=== PATIENT | female | born 1940 | race Caucasian/White ===

== ENCOUNTER → 2016-08-07 | Outpatient (CLI) | payer OTHER ==
[~2016-08-07] MED LIST: ASPEC81 PO; ATV5 PO; CRG625 PO; LOSA1TAB PO; LPT40 PO; MULT-506 PO
--- NOTE | 2016-08-07 13:16 | MAMMOGRAPHY REPORT ---
BILATERAL DIGITAL SCREENING MAMMOGRAM TOMOSYNTHESIS WITH CAD: 08/07/2016 CLINICAL HISTORY: Asymptomatic. Personal history of breast cancer. TECHNIQUE: Breast tomosynthesis in addition to standard 2D mammography was performed. Current study was also evaluated with a Computer Aided Detection (CAD) system. COMPARISON: Comparison is made to exams dated: 06/16/2015 mammogram, 12/12/2014 ultrasound, 12/12/2014 mammogram, 06/07/2014 ultrasound, 05/27/2014 mammogram, and 04/19/2011 ultrasound - [facility]. BREAST COMPOSITION: There are scattered areas of fibroglandular density in both breasts. FINDINGS: No suspicious masses, calcifications, or areas of architectural distortion are noted in e ither breast. There has been no significant interval change compared to prior exams. There are stab le post surgical changes in the left upper outer quadrant from prior lumpectomy. Small bilateral ci rcumscribed benign-appearing masses and bilateral benign-appearing calcifications are not significan tly changed compared to prior exams. IMPRESSION: ACR BI-RADS CATEGORY 2: BENIGN There is no mammographic evidence of malignancy. A 1 year screening mammogram is recommended. The p atient will receive written notification of the results. Approximately 10% of breast cancers are not detected with mammography. A negative mammographic repor t should not delay biopsy if a clinically suggestive mass is present. Amanda Barber M.D. ah/:08/07/2016 09:41:52 Halver Machine Operator: Delmi GALICIA)(M), [facility] letter sent: Normal 1/2 BI-RADS Code: ACR BI-RADS Category 2: Benign
== END | disposition home or self-care (01) ==
LOC: C.MAMM 08:30
PROVIDERS: ATTEND Internal Medicine
DX: Z12.31 Encounter for screening mammogram for malignant neoplasm of breast (principal)

== ENCOUNTER → 2016-09-19 | Outpatient (CLI) | payer OTHER ==
[2016-09-19 13:30] LABS: BLOOD UREA NITROGEN 11 mg/dl (7-18); BUN/CREATININE RATIO 18.4 (10-20); CALCIUM 9.3 mg/dl (8.5-10.1); CARBON DIOXIDE 27 mmol/L (21-32); CHLORIDE 106 mmol/L (98-107); CHOLESTEROL 118 mg/dl (0-200); CREATININE 0.62 mg/dl (0.60-1.20); GLUCOSE 95 mg/dl (70-99); POTASSIUM 4.8 mmol/L (3.5-5.1); SODIUM 141 mmol/L (136-145); TRIGLYCERIDES 76 mg/dl (0-150); VERY LOW DENSITY LIPOPROT CALC 15 mg/dl
[2016-09-19 13:33] LABS: CHOLESTEROL/HDL RATIO 2.9; HDL CHOLESTEROL 41 mg/dl
== END | disposition home or self-care (01) ==
LOC: C.LABSPEC 12:09
PROVIDERS: ATTEND Internal Medicine
DX: E78.5 Hyperlipidemia, unspecified (principal)

== ENCOUNTER → 2017-01-28 | Outpatient (CLI) | payer OTHER ==
[2017-01-28 13:07] VITALS: BP 144/74; PULSE 72; TEMP 36.8; O2SAT 93
--- NOTE | 2017-01-28 14:31 | Radiation Oncology Follow-Up ---
Radiation Oncology Follow-Up Date of Visit Jan 28, 2017. 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 05/16/2011 Status post completion of radiation therapy utilizing accelerated partial breast treatment completed 07/05/2011 received 3850 cGy Intolerance to aromatase inhibitor Last Edited By: Mikki Jin on Jan 31, 2015 13:36 Interim History She has been doing well over this past year. She has noticed no changes to her breast. She is noted no masses or tenderness and no change of the axilla. She' s had no swelling of her arm. She is up-to-date on mammography. She had a mammogram 08/07/2016. There was no mammographic evidence of malignancy. A one- year screening mammogram was recommended. This was given a BI-RADS Category 2. In general she is doing well but she still complains of xerostomia. We have discussed the/chair. We discussed using humidifier in her bedroom. She stated she did use this for a while but then did not put it back into the room. She is edentulous. She has discussed this with her primary care physician. She has had laboratory studies. Allergies Coded Allergies: No Known Allergies (Unverified , 05/22/15) Home Medications Scheduled Aspirin (Aspirin EC Low Dose), 81 MG PO QAM Atorvastatin (Atorvastatin Calcium), 40 MG PO QAM Carvedilol (Carvedilol), 6.25 MG PO BID Losartan Potassium (Cozaar), 1 TAB PO DAILY Multivitamin (Multivitamin), 1 TAB PO DAILY Scheduled PRN Lorazepam (Lorazepam), 0.5 MG PO Q6H PRN for Anxiety/Agitation Review of Systems Gastrointestinal: Symptoms: WNL Oral: Symptoms: No Problems Other Oral Symptoms: Thick saliva and dry mouth - new problem for patient past 2 years Respiratory: Symptoms: WNL Urinary: Symptoms: WNL Skin: Symptoms: No Problems Breast: Right Upper Arm Measurement: 35.0 Right Mid Arm Measurement: 26.3 Right Wrist Measurement: 17.9 Left Upper Arm Measurement: 34.7 Left Mid Arm Measurement: 27.2 Left Wrist Measurement: 17.4 Arm Dominence: Left Physical Exam Vital Signs Date Time Temp Pulse Resp B/P (MAP) Pulse Ox O2 Delivery O2 Flow Rate FiO2 01/28/17 13:07 36.8 72 16 144/74 93 Fatigue: None General Appearance: no apparent distress Eyes: normal inspection, EOMI ENT: normal ENT inspection, hearing grossly normal Neck: no adenopathy, thyroid normal Respiratory/Chest: lungs clear Breast: She has well-healed incisions of the left breast. There are no masses or tenderness and no axillary adenopathy. She has no skin retractions or nipple changes. There is no telangiectasia. Using the Hudson score cosmesis she has an excellent outcome. The right breast showed no masses or tenderness and no axillary adenopathy. Cardiovascular: regular rate, rhythm, no gallop, no murmur Extremities: no pedal edema Neurologic/Psychiatric: no motor/sensory deficits, alert, normal mood/affect Skin: warm/dry Lymphatic: no adenopathy Additional Studies Patient: FITO JONES [facility] Rec: [id number] Address1: [address] [place] [address] [id number] Date: 1940 Sex: F Ref Phy: Hari Rivero M.D. Att Phy: Hari Rivero M.D. Sofiya Phy: Hari Rivero M.D. Inter Phy: Amanda Barber MD [facility] Zip: [place] [address] SC: [id number] Report #: [id number] Nutritional Services Director: YEISON Diagnosis: ASYMPTOMATIC Service Date: 08/07/16 MNE: [id number] Ordering Dr: Hari Rivero M.D. CC: Hari Rivero M.D. CONF: DICTATED BY: Amanda Barber MD MAMMOGRAPHY REPORT BILATERAL DIGITAL SCREENING MAMMOGRAM TOMOSYNTHESIS WITH CAD: 08/07/2016 CLINICAL HISTORY: Asymptomatic. Personal history of breast cancer. TECHNIQUE: Breast tomosynthesis in addition to standard 2D mammography was performed. Current study was also evaluated with a Computer Aided Detection (CAD ) system. COMPARISON: Comparison is made to exams dated: 06/16/2015 mammogram, 12/12/2014 ultrasound, 12/12/2014 mammogram, 06/07/2014 ultrasound, 05/27/2014 mammogram, and 04/19/2011 ultrasound - [facility]. BREAST COMPOSITION: There are scattered areas of fibroglandular density in both breasts. FINDINGS: No suspicious masses, calcifications, or areas of architectural distortion are noted in either breast. There has been no significant interval change compared to prior exams. There are stable post surgical changes in the left upper outer quadrant from prior lumpectomy. Small bilateral circumscribed benign-appearing masses and bilateral benign-appearing calcifications are not significantly changed compared to prior exams. IMPRESSION: ACR BI-RADS CATEGORY 2: BENIGN There is no mammographic evidence of malignancy. A 1 year screening mammogram is recommended. The patient will receive written notification of the results. Approximately 10% of breast cancers are not detected with mammography. A negative mammographic report should not delay biopsy if a clinically suggestive mass is present. Amanda Barber M.D. ah/:08/07/2016 09:41:52 Investment Fund Manager: Delmi JALLOH(Ángel)(M), [facility] letter sent: Normal 1/2 BI-RADS Code: ACR BI-RADS Category 2: Benign Dictated by: Amanda Barber MD Signed by: Amanda Barber MD Assessment & Plan Plan: Continue annual mammography. Continue regular follow-up with her primary care physician. She will laced the humidifier back in her bedroom. She is going to use Biotene mouth rinse. She'll continue follow-up with her primary care physician in regards to the xerostomia. A follow-up appointment with our office was not given. She may call if she has any questions or concerns would be happy to see her. She'll continue annual breast examination with the primary care physician. Total Time In Follow-Up I spent 20 minutes speaking to the patient and performing examination. I spent 15 minutes reviewing information and completing this note. Copy To Hari Rivero M.D. Problem Qualifiers (1) Breast cancer of upper-inner quadrant of left female breast: Estrogen receptor status: positive Qualified Codes: C50.212 - Malignant neoplasm of upper-inner quadrant of left female breast; Z17.0 - Estrogen receptor positive status [ER+]
== END | disposition home or self-care (01) ==
LOC: C.ONC 12:45
PROVIDERS: ATTEND Physician Assistant Medical
DX: C50.212 Malignant neoplasm of upper-inner quadrant of left female breast (principal)

== ENCOUNTER → 2017-03-21 | Outpatient (CLI) | payer OTHER ==
[~2017-03-21] MED LIST changes: -ASPEC81 PO; +ASPI-320 PO
[2017-03-21 12:37] LABS: BASO % 0.6 %; BASO ABS # 0.06 K/uL (0-0.2); EOS % 6.9 %; EOS ABS # 0.71 K/uL (0-0.5); HEMATOCRIT 42.5 % (37-47); HEMOGLOBIN 13.5 g/dL (12.0-16.0); IG# 0.03 K/uL (0.00-0.02); LYMPH % 30.3 %; LYMPH ABS # 3.14 K/uL (1.2-3.4); MEAN CELL VOLUME 84.7 fL (80-100); MEAN CORPUSCULAR HEMOGLOBIN 26.9 pg (25-34); MEAN CORPUSCULAR HGB CONC 31.8 g/dl (32-36); MEAN PLATELET VOLUME 9.5 fL (7.4-10.4); MONO % 6.8 %; NEUT % 55.1 %; NEUT ABS # 5.72 K/uL (1.4-6.5); PLATELET COUNT 404 K/uL (130-400); RED CELL DISTRIBUTION WIDTH SD 46.2 fL (36.4-46.3); WHITE BLOOD COUNT 10.36 K/uL (4.8-10.8)
[2017-03-21 12:46] LABS: ALBUMIN 3.7 gm/dl (3.4-5.0); ALT/SGPT 25 U/L (12-78); BLOOD UREA NITROGEN 14 mg/dl (7-18); CALCIUM 9.2 mg/dl (8.5-10.1); CARBON DIOXIDE 27 mmol/L (21-32); CHOLESTEROL 160 mg/dl (0-200); CREATININE 0.61 mg/dl (0.60-1.20); GLUCOSE 87 mg/dl (70-99); POTASSIUM 4.1 mmol/L (3.5-5.1); SODIUM 137 mmol/L (136-145)
[2017-03-21 12:49] LABS: ALKALINE PHOSPHATASE 74 U/L (45-117); AST/SGOT 17 U/L (15-37); LDL CHOLESTEROL (DIRECT) 106 mg/dl
== END | disposition home or self-care (01) ==
LOC: C.LABSPEC 12:25
PROVIDERS: ATTEND Internal Medicine
DX: E78.5 Hyperlipidemia, unspecified (principal); M19.93 Secondary osteoarthritis, unspecified site; I51.81 Takotsubo syndrome; E55.9 Vitamin D deficiency, unspecified

== ENCOUNTER → 2017-08-08 | Outpatient (CLI) | payer OTHER | END | disposition home or self-care (01) | LOC: C.MAMM 08:35 | PROVIDERS: ATTEND Internal Medicine | DX: Z12.31 Encounter for screening mammogram for malignant neoplasm of breast (principal); Z85.3 Personal history of malignant neoplasm of breast ==

== ENCOUNTER → 2017-08-15 | Outpatient (CLI) | payer OTHER ==
--- NOTE | 2017-08-15 15:15 | MAMMOGRAPHY REPORT ---
UNILATERAL LEFT DIGITAL DIAGNOSTIC MAMMOGRAM TOMOSYNTHESIS AND TARGETED LEFT ULTRASOUND: 08/15/2017 CLINICAL HISTORY: Callback from screening mammogram for left breast mass. TECHNIQUE: Breast tomosynthesis in addition to standard 2D mammography was performed. Spot compress ion left CC and MLO 2D and tomosynthesis images were obtained. COMPARISON: Comparison is made to exams dated: 08/08/2017 mammogram, 08/07/2016 mammogram, 06/16/2015 m ammogram, 06/16/2015 ultrasound, 12/12/2014 ultrasound, and 12/12/2014 mammogram - [facility]. BREAST COMPOSITION: There are scattered areas of fibroglandular density in the left breast. FINDINGS: Spot compression views demonstrate an oval circumscribed 5 mm mass within the left central breast. A few calcifications are seen within the mass which are smudgy and amorphous on the cc view and demonstrate layering on the MLO view suggestive of milk of calcium layering within a cyst. A few other small circumscribed benign-appearing masses are seen, which are stable compared to prior exams and likely represent cysts. Targeted ultrasound was performed of the left breast in the region of the mammographic mass. In the left 6:00 subareolar breast, there is an oval anechoic circumscribed 4 x 2 mm mass which contains a f ew punctate echogenic foci internally consistent with calcifications. This is consistent with a cassidy gn cyst. In the left 6:00 breast, 2 cm from the nipple, there is a round circumscribed anechoic 4 x 4 x 3 mm mass, which on real-time imaging shows mobile internal echogenic debris. 1 of these masses, likely the more posterior mass at 2 cm from the nipple is felt to correspond with the mammographic m ass. Another oval anechoic benign simple cyst measuring 5 mm is seen within the left 12:00 periareol ar breast. IMPRESSION: ACR BI-RADS CATEGORY 2: BENIGN, TARGETED ULTRASOUND ACR BI-RADS CATEGORY 2: BENIGN Benign 4 mm cyst in the left 6:00 breast on ultrasound, which corresponds with the circumscribed mamm ographic mass. There is no mammographic or targeted sonographic evidence of malignancy. A 1 year scr eening mammogram is recommended. The patient has been verbally notified of the results. Approximately 10% of breast cancers are not detected with mammography. A negative mammographic report should not delay biopsy if a clinically suggestive mass is present. Amanda Barber M.D. ah/:08/15/2017 12:15:29 Wagon Winder: Lisa Virgen, [facility] letter sent: Normal 1/2 BI-RADS Code: ACR BI-RADS Category 2: Benign Ultrasound BI-RADS: ACR BI-RADS Category 2: Benign
== END | disposition home or self-care (01) ==
LOC: C.MAMM 10:42
PROVIDERS: ATTEND Internal Medicine
DX: N60.02 Solitary cyst of left breast (principal)